=== PATIENT | male | born 1985 | race African-American/Black ===

== ENCOUNTER 2017-06-30 00:46 | Emergency (ER) | payer MEDICAID ==
[~2017-06-30] VITALS: Ht 185.4 cm; Wt 93.0 kg
[~2017-06-30 00:46] MED LIST: IBUPROFEN600 MG ORAL
[2017-06-30 01:32] VITALS: BP 137/72
--- NOTE | 2017-06-30 01:41 | Emergency Room Report ---
History of Present Illness General Chief Complaint: Lower Extremity Injury Source: Patient Present Illness HPI Patient presents with complaints of right knee pain He reports that he was coming to a stop in order to make a shot And he felt his right knee buckle and felt a popping sensation Denies any other fall or trauma denies any pelvic pain denies any ankle pain Patient reports significant past history with injuries to the right knee starting back in the year 1999 Allergies: Coded Allergies: THOMAS RING (Unverified Allergy, Unknown, 06/30/17) SULFA (SULFONAMIDE ANTIBIOTICS) (Verified Allergy, Unknown, 06/30/17) Patient History Past Medical History: see triage record Pertinent Family History: none Reviewed Nursing Documentation: PMH: Agreed; PSxH: Agreed Nursing Documentation-PMH Past Medical History: No Stated History Review of Systems All Other Systems: negative except mentioned in HPI Physical Exam Vital Signs Date Time Temp Pulse Resp B/P (MAP) Pulse Ox O2 Delivery O2 Flow Rate FiO2 06/30/17 00:48 98.5 84 16 137/72 96 Room Air 98.4 Sp02 EP Interpretation: reviewed, normal General Appearance: well appearing, no apparent distress Head: normocephalic, atraumatic Eyes: bilateral eye PERRL, bilateral eye EOMI ENT: hearing grossly normal, normal pharynx Neck: full range of motion, supple Respiratory: chest non-tender, lungs clear Cardiovascular #1: regular rate, rhythm Musculoskeletal: other - Uncomfortable on bending the right knee, however no obvious effusion palpation is normal no obvious laxity Neurologic: oriented x3, responsive, lead scientist III-XII nml as tested Skin: no rash, warm/dry Lymphatic: no adenopathy Medical Decision Making Diagnostic Impression: Primary Impression: knee sprain ER Course Patient's imaging study does not reveal any obvious acute fractures Clinical history and exam are also more consistent with soft tissue, ligamental type pathology Patient reports that he is on Ultram Cures does reveal consistent prescription for this medication patient will continue to have outpatient follow-up for discomfort Was provided with Juan Carlos wrap Other X-Ray Diagnostic Results Other X-Ray Diagnostic Results : X-Ray ordered: Right knee # of Views/Limited Vs Complete: 3 View Indication: Pain EP Interpretation: Yes Interpretation: no dislocation, no soft tissue swelling, no fractures Impression: No acute disease Electronically Signed by: Marcus Olivier DO Last Vital Signs Date Time Temp Pulse Resp B/P (MAP) Pulse Ox O2 Delivery O2 Flow Rate FiO2 06/30/17 01:32 98.5 16 137/72 96 Room Air 98.4 06/30/17 00:48 84 Status: improved Disposition: HOME, SELF-CARE Condition: Improved Referrals: NOT CHOSEN IPA/MD,REFERRING (PCP) Departure Forms: Return to Work Return to Work in (Days): 1 Return to Work Date: July 01, 2017 Patient Instructions: Knee Sprain, [id number], Knee Pain, [id number] Additional Instructions: Patient is provided with the discharge instructions notified to follow up with primary doctor in the next 2-3 days otherwise return to the er with any worsening symptoms. Please note that this report is being documented using [employer] technology. This can lead to erroneous entry secondary to incorrect interpretation by the dictating instrument. Marcus Olivier DO June 30, 2017 01:41
--- NOTE | 2017-06-30 10:37 | Diagnostic Imaging Report ---
Indication: Pain Knee pain/trauma 3 views of the right knee were obtained. Findings: No acute fracture, malalignment, or joint effusion are identified. Joint space is relatively well-maintained. Impression: Negative for acute findings.
== END 2017-06-30 01:44 | disposition home or self-care (01) ==
LOC: EMR 01:10
DX: S83.91XA Sprain of unspecified site of right knee, initial encounter (principal); X50.9XXA Other and unspecified overexertion or strenuous movements or postures, initial encounter; Y93.67 Activity, basketball; Y92.89 Other specified places as the place of occurrence of the external cause; Z88.2 Allergy status to sulfonamides
CPT/HCPCS: 99283